=== PATIENT | female | born 1985 | race Asian ===

== ENCOUNTER 2018-04-17 15:45 | Emergency (ER) | payer BC ==
[2018-04-17] MEDS ORDERED: FAMOTIDINE 20 MG TABLET PO ONE (16:29)
--- NOTE | 2018-04-17 16:29 | ER Document Report ---
ED Medical Screen (RME) - General Chief Complaint: Abdominal Pain Stated Complaint: ABDOMINAL PAIN Time Seen by Provider: 04/17/18 16:12 Notes: RAPID MEDICAL EVALUATION DISCLOSURE I have seen this patient as part of a Rapid Medical Evaluation and, if applicable, placed any initially appropriate orders. The patient will be seen and fully evaluated, including a full history and physical exam, by a provider ( in Main ED or Fast Track) when a room becomes available. 32-year-old female sent here from the urgent care for right upper quadrant abdominal pain ongoing for the past 2 weeks. She has not had any nausea vomiting diarrhea dysuria frequency hesitancy fevers chills. Pain is worse after drinking alcohol at times but not worse with food, greasy or spicy. She has no prior history of acid reflux peptic ulcer disease or gallbladder issues. Dr. Marroquin at the urgent care sent her here. EXAM Well-appearing nontoxic No abdominal TTP including no RUQ TTP No jaundice - Related Data Allergies/Adverse Reactions: No Known Drug Allergies Allergy (Verified 04/17/18 16:20) sunscreen Allergy (Uncoded 04/17/18 16:20) Past Medical History - Social History Chew tobacco use (# tins/day): No Frequency of alcohol use: Social Drug Abuse: None Renal/ Medical History: Denies: Hx Peritoneal Dialysis Physical Exam - Vital signs Vitals: Temp Pulse Resp BP Pulse Ox 99.0 F 71 18 123/70 98 04/17/18 15:59 04/17/18 15:59 04/17/18 15:59 04/17/18 15:59 04/17/18 15:59 Course - Vital Signs Vital signs: Temp Pulse Resp BP Pulse Ox 99.0 F 71 18 123/70 98 04/17/18 15:59 04/17/18 15:59 04/17/18 15:59 04/17/18 15:59 04/17/18 15:59
[2018-04-17 17:48] LABS: ABSOLUTE EOSINOPHILS # (AUTO) 0.1 10^3/uL (0.0-0.6); ABSOLUTE LYMPHOCYTES (AUTO) 3.3 10^3/uL (0.5-4.7); ABSOLUTE MONOCYTES (AUTO) 0.5 10^3/uL (0.1-1.4); ABSOLUTE NEUT (AUTO) 4.7 10^3/uL (1.7-8.2); BASOPHILS % (AUTO) 0.5 % (0-2); EOSINOPHILS % (AUTO) 1.4 % (0-6); HEMATOCRIT 40.9 % (36.0-47.0); HEMOGLOBIN 13.7 g/dL (12.0-15.5); LYMPHOCYTES % (AUTO) 37.8 % (13-45); MEAN CORPUSCULAR HGB CONC 33.5 g/dL (32.0-36.0); MEAN CORPUSCULAR VOLUME 92 fl (80-97); MONOCYTES % (AUTO) 6.3 % (3-13); PLATELET COUNT 274 10^3/uL (150-450); RED BLOOD COUNT 4.43 10^6/uL (3.72-5.28); RED CELL DISTRIBUTION WIDTH 12.5 % (11.5-14.0); TOTAL CELLS COUNTED % (AUTO) 100 %; WHITE BLOOD COUNT 8.8 10^3/uL (4.0-10.5)
[2018-04-17 18:02] LABS: APPEARANCE,URINE CLEAR; BILIRUBIN,URINE NEGATIVE (NEGATIVE); COLOR,URINE YELLOW; GLUCOSE, URINE NEGATIVE (NEGATIVE); KETONES,URINE TRACE mg/dL (NEGATIVE); LEUKOCYTE ESTERASE,URINE NEGATIVE (NEGATIVE); NITRITE,URINE NEGATIVE (NEGATIVE); PROTEIN,URINE NEGATIVE (NEGATIVE); URINE SPECIFIC GRAVITY 1.024; UROBILINOGEN,URINE NEGATIVE mg/dL (<2.0)
[2018-04-17 18:04] LABS: ALANINE AMINOTRANSFERASE 38 U/L (9-52); ALKALINE PHOSPHATASE 42 U/L (38-126); ANION GAP 14 (5-19); ASPARTATE AMINO TRANSFERASE 33 U/L (14-36); BILIRUBIN,DIRECT 0.2 mg/dL (0.0-0.4); BILIRUBIN,TOTAL 0.3 mg/dL (0.2-1.3); BLOOD UREA NITROGEN 19 mg/dL (7-20); CALCIUM 9.9 mg/dL (8.4-10.2); CARBON DIOXIDE 26 mmol/L (22-30); CHLORIDE 102 mmol/L (98-107); GLUCOSE 91 mg/dL (75-110); LIPASE 59.1 U/L (23-300); POTASSIUM 3.9 mmol/L (3.6-5.0); SODIUM 142.2 mmol/L (137-145); TOTAL PROTEIN 8.1 g/dL (6.3-8.2)
--- NOTE | 2018-04-17 18:45 | ER Document Report ---
ED General - General Chief Complaint: Abdominal Pain Stated Complaint: ABDOMINAL PAIN Time Seen by Provider: 04/17/18 16:12 - HPI Notes: 32-year-old female who presents with epigastric pain. This is an admitted heavy drinker of beer and wine who indicates over the last several weeks she has had some intermittent epigastric pain. Somewhat poorly localized and described, achy and sometimes sharp. Nonradiating. Occasional nausea but no vomiting. She just wanted to "get checked out". No other modifying factors, no other associated symptoms, no other provocative or palliative factors. Vaginal onset. Cannot relate any particular precipitating factors, does not seem to be centered around diet or fatty foods. - Related Data Allergies/Adverse Reactions: No Known Drug Allergies Allergy (Verified 04/17/18 16:20) sunscreen Allergy (Uncoded 04/17/18 16:20) Past Medical History - Social History Smoking Status: Never Smoker Chew tobacco use (# tins/day): No Frequency of alcohol use: Social Drug Abuse: None Family History: None Patient has suicidal ideation: No Patient has homicidal ideation: No Renal/ Medical History: Denies: Hx Peritoneal Dialysis Physical Exam - Vital signs Vitals: Temp Pulse Resp BP Pulse Ox 99.0 F 71 18 123/70 98 04/17/18 15:59 04/17/18 15:59 04/17/18 15:59 04/17/18 15:59 04/17/18 15:59 - Notes Notes: General: Well developed . HEENT: Normocephalic, atraumatic. Pupils equal round reactive to light. No JVD. Chest: No trauma. Respiratory: Good air exchange, normal excursion. Cardiac: Regular rhythm. No murmurs or gallops. Abdomen: Soft, benign. Nondistended. Nontender. Back: No asymmetry or gross abnormality. Motor: Grossly normal power and tone. Neurologic: Alert, nonfocal. Cranial nerves II-12 are intact. Sensation intact. Vascular: Well perfused. Normal peripheral pulses. Skin: No petechiae or purpura. Course - Re-evaluation Re-evalutation: 04/17/18 18:44 Note patient seen by physician in triage. Well-appearing female with a benign examination, strongly suspicious for gastritis peptic ulcer disease, would also consider biliary tract disease. Laboratory evaluation is reviewed, patient has normal CBC, chemistries, LFTs and lipase. Urine test negative. This point I do not believe the patient has an indication for emergent imaging. She can be placed on an H2 clementina, advised to curtail her alcohol use, follow -up closely with her primary care physician. - Vital Signs Vital signs: Temp Pulse Resp BP Pulse Ox 99.0 F 71 18 123/70 98 04/17/18 15:59 04/17/18 15:59 04/17/18 15:59 04/17/18 15:59 04/17/18 15:59 - Laboratory Result Diagrams: 04/17/18 17:34 04/17/18 17:34 Laboratory results interpreted by me: 04/17/18 17:34 Urine Ketones TRACE H Discharge - Discharge Clinical Impression: Epigastric pain Condition: Good Disposition: HOME, SELF-CARE Instructions: Abdominal Pain ([facility])
[2018-04-17 19:03] VITALS: BP 109/65
== END 2018-04-17 19:04 | disposition home or self-care (01) ==
LOC: ER 15:45
DX: R10.13 Epigastric pain (principal); R11.0 Nausea; Z91.048 Other nonmedicinal substance allergy status
CPT/HCPCS: 36415; 80053; 81001; 81025; 83690; 85025; 99284